=== PATIENT | male | born 1960 ===

== ENCOUNTER 2017-03-16 09:39 | Day surgery (SDC) | payer MEDICARE ==
[2017-03-16] MEDS ORDERED: Propofol 10 mg/ml Inj (20 ML) ONE (12:43)
[2017-03-16] MEDS ORDERED: Lactated Ringer's 500 ML IV ONE ×2 (12:47)
[2017-03-16 14:04] VITALS: RESP 15; TEMP 97.7
[2017-03-16 14:17] VITALS: PULSE 74
[2017-03-16 14:49] VITALS: BP 117/68; O2SAT 98
== END 2017-03-16 14:45 | disposition home or self-care (01) ==
LOC: C.ENDO 09:39
PROVIDERS: ATTEND Internal Medicine Gastroenterology
DX: R10.13 Epigastric pain (principal); Z12.11 Encounter for screening for malignant neoplasm of colon; R12 Heartburn; K31.89 Other diseases of stomach and duodenum; K26.9 Duodenal ulcer, unspecified as acute or chronic, without hemorrhage or perforation; K20.9 Esophagitis, unspecified; K57.30 Diverticulosis of large intestine without perforation or abscess without bleeding
CPT/HCPCS: 43239; 45378; 88305; 88312; 88313; 88342; J2704; J3010; J7120